=== PATIENT | female | born 1985 | race African-American/Black ===

== ENCOUNTER 2017-01-28 02:15 | Emergency (ER) | payer OTHER ==
--- NOTE | 2017-01-28 10:33 | NUR ---
Received SAD person referral as pt attemtped suicide two years ago. Attempted to contact pt. No answer, voice mail message left.
--- NOTE | 2017-02-07 07:17 | ER ---
ADMIT: 01/28/2017 RM/LOC: ER [facility] MR#: [id number] [address] [id number] JARADVirginieKEENA [address] [place], [place] [id number] Emergency Room Report SEX: F AGE: 31 : 1985 DATE: 01/28/2017 See T-sheet for complete H and P. ADDENDUM: A 31-year-old female, comes in with complaints of some right upper quadrant pain that began approximately 6 to 7 hours ago. It has been fairly persistent since onset. She has had pain like this in a similar episode. She was seen here for 4 to 5 months ago. She had an ultrasound done, which showed some stones, but no other gallbladder disease. On her exam today, she has some right upper quadrant tenderness, otherwise her abdomen is soft, she has active bowel sounds. I did have getting some labs, which show her CBC had a white count of 10.9, her chemistries were unremarkable, CRP was 0.29. The patient's urine showed urobilinogen of 4, otherwise no signs of infection and her urine preg was negative. She was given Toradol and some Zofran in the Emergency Department. States she feels somewhat improved and actually feels comfortable going home. I do believe she warrants to get an outpatient ultrasound to further look at her gallbladder at this time and that request was sent to centralized scheduling to get that set up. The results are to go to Dr. Ngo. She is told to use [place] 1 tablet every 4 to 6 hours as needed for pain and she is given a total number of #5. She is to return for worsening or concerning symptoms. DIAGNOSIS: Abdominal pain. Bala Garibay MD/ viktoria JOB #: [id number] CC: Bala Garibay MD, Attending Physician Eitan Ngo MD, Family Physician
== END 2017-01-28 04:15 | disposition home or self-care (01) ==
LOC: ER 02:15
DX: R10.11 Right upper quadrant pain (principal); F32.9 Major depressive disorder, single episode, unspecified; F17.210 Nicotine dependence, cigarettes, uncomplicated; Z88.8 Allergy status to other drugs, medicaments and biological substances; Z98.890 Other specified postprocedural states